=== PATIENT | female | born 1940 | race Caucasian/White ===

== ENCOUNTER 2018-10-06 18:26 | Outpatient (REF) | payer MEDICARE, OTHER, SELFPAY ==
[2018-10-06 22:45] LABS: TSH (W/Ref FT4) 1.98 uIU/mL (0.358-3.74)
== END 2018-10-06 18:46 ==
LOC: NCHCN 18:26
PROVIDERS: PCP Internal Medicine; Visit Provider Nurse Practitioner Family
DX: F43.22 Adjustment disorder with anxiety (principal); I10 Essential (primary) hypertension
CPT/HCPCS: 84443